=== PATIENT | female | born 1955 | race Caucasian/White ===

== ENCOUNTER 2024-07-31 07:52 | Outpatient (CLI) | payer MEDICARE, SELFPAY ==
--- NOTE | 2024-07-31 08:01 | XR_ITS ---
FINAL REPORT CLINICAL HISTORY: Acute cough, congestion FINDINGS: No acute pulmonary density is evident. There is no evidence of effusion or other pleural disease. The mediastinum has a normal appearance. The cardiac silhouette is unremarkable. IMPRESSION: Unremarkable chest exam. Reviewed, Interpreted and Dictated by Mimi Chin MD Transcribed by Bettye Gamble Authenticated and [facility]
--- OUTSIDE RECORDS SUMMARY | 2024-08-01 21:44 | XMS_ITS ---
Author Organization Unknown TREATMENT PLAN [facility] Start Date Provider Encounter for Check-up [id number] [facility]
== END 2024-07-31 23:59 | disposition home or self-care (01) ==
LOC: RAD 07:53
PROVIDERS: PCP Family Medicine; Visit Provider Family Medicine
DX: R05.9 Cough, unspecified (principal)
CPT/HCPCS: 71046

== ENCOUNTER 2024-08-30 16:18 | Outpatient (CLI) | payer MEDICARE, SELFPAY ==
[2024-08-30 18:38] LABS: Basophils % 0.3 % (0.1-2.0); Eosinophils # 0.1 Kmm3 (0.0-0.4); Eosinophils % 1.3 % (0.1-12.0); Hematocrit 40.8 % (37.0-47.0); Hemoglobin 13.2 g/dL (12.2-16.2); Immature Granulocytes # 0.03 10^3uL; Immature Granulocytes % 0.3 %; Lymphocytes # 2.6 K/mm3 (0.7-4.5); Lymphocytes % 24.1 % (10-50); Mean Corpuscular HGB Conc 32.4 g/dL (31.8-35.4); Mean Corpuscular Hemoglobin 29.7 pg (27.0-31.2); Mean Corpuscular Volume 91.9 fl (81-99); Mean Platelet Volume 10.2 fl (7.4-10.4); Monocytes # 0.5 K/mm3 (0.1-1.0); Monocytes % 4.8 % (1.7-9.3); Neutrophils # 7.6 K/mm3 (1.8-7.8); Neutrophils % 69.2 % (37.0-80.0); Nucleated Red Blood Cells # 0 10^3/uL; Nucleated Red Blood Cells % 0 %; Platelet Count 290 K/mm3 (142-424); Red Blood Count 4.44 M/mm3 (4.20-5.40); Red Cell Distribution Width-SD 40.8 fL; White Blood Count 10.9 K/mm3 (4.8-10.8)
[2024-08-30 18:54] LABS: Hemoglobin A1C 6.7 % (4.0-6.0)
[2024-08-30 19:09] LABS: Alanine Aminotransferase 21 U/L (12-78); Albumin Level 4.3 g/dl (3.5-5.0); Alkaline Phosphatase 78 U/L (38-126); Anion Gap 8.8 mEq/L (5-15); Aspartate Amino Transferase 24 U/L (14-36); Bilirubin,Total 0.4 mg/dl (0.2-1.3); Blood Urea Nitrogen 27 mg/dl (7-17); Calcium 9.1 mg/dl (8.4-10.2); Carbon Dioxide 29 mmol/L (22.0-30.0); Chloride 104 mmol/L (98-107); Chol/HDL Ratio 3.2 (1-3.5); Cholesterol 162 mg/dl (140-200); Estimated Glomerular Filt Rate 83 ml/min (>60); GFR (African American) 101 ML/MIN (>60); Globulin 2.2 g/dL (1.3-3.2); Glucose 165 mg/dl (74-100); HDL Cholesterol 51 mg/dl (40-60); Potassium 4.8 mmoL/L (3.5-5.1); Sodium 137 mmol/L (136-145); Total Protein,Serum 6.5 g/dl (6.3-8.2); Triglycerides 236 mg/dl (30-150); VLDL Cholesterol 47 mg/dL (0-40)
[2024-08-30 19:22] LABS: Direct LDL Cholesterol 82.57 mg/dL (100-129)
== END 2024-08-30 23:59 | disposition home or self-care (01) ==
LOC: LAB.DROPOF 09-02 10:34
PROVIDERS: PCP Family Medicine; Visit Provider Family Medicine
DX: E11.9 Type 2 diabetes mellitus without complications (principal); J44.9 Chronic obstructive pulmonary disease, unspecified; K57.92 Diverticulitis of intestine, part unspecified, without perforation or abscess without bleeding; Z72.0 Tobacco use
CPT/HCPCS: 80053; 80061; 83036; 85025

== ENCOUNTER 2024-09-02 14:40 | Outpatient (CLI) | payer MEDICARE, SELFPAY ==
--- NOTE | 2024-09-02 14:43 | XR_ITS ---
FINAL REPORT TECHNIQUE: Chest PA & Lateral CLINICAL HISTORY: Chronic bronchitis COMPARISON: 07/31/2024 FINDINGS: 2 views of the chest were performed. The heart size is normal. The mediastinum is within normal limits. There is no acute cardiopulmonary process. There are no pleural effusions. There is no pneumothorax. The bony thorax appears intact. There is interbody fusion hardware in the lower cervical spine. IMPRESSION: No acute cardiopulmonary process. Reviewed, Interpreted and Dictated by Zana Dumont MD Transcribed by Lucy Christianson Authenticated and [facility]
== END 2024-09-02 23:59 | disposition home or self-care (01) ==
LOC: RAD 14:41
PROVIDERS: PCP Family Medicine; Visit Provider Family Medicine
DX: J42 Unspecified chronic bronchitis (principal); Z98.1 Arthrodesis status
CPT/HCPCS: 71046

== ENCOUNTER 2024-09-06 14:05 | Outpatient (CLI) | payer MEDICARE, SELFPAY ==
--- NOTE | 2024-09-06 14:00 | CT_ITS ---
FINAL REPORT TECHNIQUE: Thin section axial images were obtained through the lungs using a low-dose technique per lung cancer screening protocol. Reconstruction images were obtained using the axial data. Exam was performed using dose reduction technique. This study was performed with techniques to keep radiation doses as low as reasonably achievable (ALARA). Individualized dose reduction techniques using automated exposure control or adjustment of mA and/or kV according to the patient's size were employed. CLINICAL HISTORY: lung cancer screening, current smoker 1ppd. 43 years COMPARISON: None FINDINGS: CTDLvol: 2.90 DLP: 100.03 Current smoker 43 pack year history Lungs: Changes of emphysema are present. There is a subpleural 4 mm nodule present in the right upper lobe, best seen on image #21 of series 4. There are at least 2 or more small (less than 4 mm in size) subpleural nodules present in the right upper lobe as well, best seen on image #15 of series 4. Lymph nodes: No thoracic lymphadenopathy. Mediastinum: Heart size is normal. Prominent coronary artery calcifications are noted. Pleura/pericardium: No pleural or pericardial effusion. Other: No acute abnormality in the upper abdomen. IMPRESSION: Small nodules in the right upper lobe, 4 mm or less in size as described. Lung RADS: 2S, the S designation for prominent coronary artery calcifications. Recommendation: 12-month follow-up LDCT. Reviewed, Interpreted and Dictated by Sveta Johnson MD Transcribed by Radha Waldron Authenticated and [facility]
== END 2024-09-06 23:59 | disposition home or self-care (01) ==
LOC: RAD 14:07
PROVIDERS: PCP Family Medicine; Visit Provider Family Medicine
DX: Z12.2 Encounter for screening for malignant neoplasm of respiratory organs (principal); R91.8 Other nonspecific abnormal finding of lung field; F17.210 Nicotine dependence, cigarettes, uncomplicated
CPT/HCPCS: 71271

== ENCOUNTER 2025-04-03 09:35 | Outpatient (CLI) | payer MEDICARE, SELFPAY ==
[2025-04-03 20:31] LABS: Hematocrit 42.0 % (37.0-47.0); Hemoglobin 13.1 g/dL (12.2-16.2); Immature Granulocytes % 0.3 %; Mean Corpuscular HGB Conc 31.2 g/dL (31.8-35.4); Mean Corpuscular Hemoglobin 29.6 pg (27.0-31.2); Mean Corpuscular Volume 94.8 fl (81-99); Nucleated Red Blood Cells % 0 %; Platelet Count 290 K/mm3 (142-424); Red Blood Count 4.43 M/mm3 (4.20-5.40); Red Cell Distribution Width-SD 41.7 fL; White Blood Count 13.3 K/mm3 (4.8-10.8)
[2025-04-03 21:08] LABS: Albumin Level 4.7 g/dl (3.5-5.0); Chloride 105 mmol/L (98-107); Potassium 5.9 mmoL/L (3.5-5.1); Sodium 144 mmol/L (136-145)
[2025-04-03 21:11] LABS: Alanine Aminotransferase 21 U/L (12-78); Albumin/Globulin Ratio 1.9 (1.1-1.8); Alkaline Phosphatase 67 U/L (38-126); Anion Gap 17.9 mEq/L (5-15); Aspartate Amino Transferase 31 U/L (14-36); Bilirubin,Total 0.3 mg/dl (0.2-1.3); Blood Urea Nitrogen 21 mg/dl (7-17); Calcium 9.4 mg/dl (8.4-10.2); Carbon Dioxide 27 mmol/L (22.0-30.0); Cholesterol 160 mg/dl (140-200); Creatinine,Serum 0.60 mg/dl (0.52-1.04); Estimated Glomerular Filt Rate 99 ml/min (>60); GFR (African American) 120 ML/MIN (>60); Globulin 2.5 g/dL (1.3-3.2); Glucose 84 mg/dl (74-100); Total Protein,Serum 7.2 g/dl (6.3-8.2); Triglycerides 279 mg/dl (30-150)
[2025-04-03 21:12] LABS: HDL Cholesterol 62 mg/dl (40-60)
[2025-04-03 21:29] LABS: Free T4 (Free Thyroxine) 0.67 ng/dl (0.78-2.19)
[2025-04-03 21:43] LABS: Thyroid Stimulating Hormone 0.74 uIU/mL (0.465-4.68)
== END 2025-04-03 23:59 | disposition home or self-care (01) ==
LOC: LAB.DROPOF 04-07 09:36
PROVIDERS: PCP Family Medicine; Visit Provider Family Medicine
DX: E11.9 Type 2 diabetes mellitus without complications (principal); I10 Essential (primary) hypertension; R53.83 Other fatigue
CPT/HCPCS: 80053; 80061; 84439; 84443; 85025

== ENCOUNTER 2025-04-04 16:19 | Emergency (ER) | payer MEDICARE, SELFPAY ==
[2025-04-04] VITALS (8 sets, daily range): BP systolic 133–142; BP diastolic 77–83; PULSE 79–86; RESP 18–20; TEMP 36.8–37.1; O2SAT 79–100; BMI 23.6
--- NOTE | 2025-04-04 16:35 | XR_ITS ---
PROCEDURE INFORMATION: Exam: XR Chest Exam date and time: 04/04/2025 4:46 PM Age: 69 years old Clinical indication: Shortness of breath; Additional info: Short of breath TECHNIQUE: Imaging protocol: Radiologic exam of the chest. Views: 1 view. Portable upright chest x-ray. COMPARISON: 1. CT LUNG SCREENING 09/06/2024 2:35 PM 2. CR XR CHEST 2V 09/02/2024 3:13 PM FINDINGS: Lungs: Lungs are hyperinflated. No airspace consolidation or nodules. Pleural spaces: No pleural effusion. No pneumothorax. Heart/Mediastinum: No abnormalities. No cardiomegaly. Vasculature: No pulmonary vascular congestion. Bones/joints: No fractures or bone lesions. Intervertebral disc prostheses of the lower lumbar spine. IMPRESSION: Hyperinflation. No acute chest disease or deleterious interval changes since 09/02/2024.
--- NOTE | 2025-04-04 16:42 | ED_ITS ---
<Statement entered by Sanam Holman DO - 04/06/25 23:22> I was consulted by the ANDREW, and we discussed the complexity of problems being addressed. I approve the treatment and management plan for this patient's care in the emergency department, thus performing a substantial portion of the medical decision making. Sanam Holman DO Discharge Plan Disposition Chief Complaint: Chest Pain Prescriptions Prescriptions: No Action lidocaine 5 % adhesive patch,medicated 1 patch topical DAILY Rx Instructions: leave on most painful area for up to 12 hrs ibuprofen 800 mg tablet 800 mg PO Q8H Qty: 90 2RF naloxone [Narcan] 4 mg/actuation spray,non-aerosol 1 spray intranasal Q2-3M PRN (Reason: opioid overdose) Qty: 2 2RF Rx Instructions: spray 1 dose into ONE nostril; alternate nostrils w each dose until help arrives cyclobenzaprine 10 mg tablet 10 mg PO HS Qty: 30 3RF oxycodone 5 mg tablet 5 mg PO Q8H PRN (Reason: pain) Qty: 90 0RF clonazepam [Klonopin] 1 mg tablet 1 mg PO TID PRN (Reason: anxiety) Qty: 90 1RF ondansetron 4 mg tablet,disintegrating 4 mg PO Q8H PRN (Reason: nausea and vomiting) Qty: 30 1RF Referrals Follow up/Referrals: Pradeep Arreguin MD [Primary Care Provider, Family Practice] - See instructions Print Language Print Language: Kinyarwanda Discharge ED Provider: Sanam Holman HPI General Chief Complaint: Chest Pain Stated Complaint: past chest pain, left arm pain, high potassium Time Seen by Provider: 04/04/25 16:23 History of Present Illness HPI narrative: 69-year-old female presents to the ED today for complaint of chest pain, left arm pain and high potassium. She was sent here by her PCP because her potassium was 5.9 this morning at 830. These labs were from yesterday. She had an appointment yesterday. She had had 3 3 days of chest pain and the chest pain got worse tonight and she decided to come in. She says her chest pain is sharp and she has been taking [place] 2 weeks. Of note her urine was neon blue. She has a history of COPD, anxiety, diabetes, and bipolar 2. Patient tells that she does not have a DNR with her but she does not want intubation or compressions. Related Data Home Medications ?Medication ?Instructions ?Recorded ?Confirmed lidocaine 5 % topical patch 1 patch topical DAILY 01/1604/03/25 Previous Rx's ?Medication ?Instructions ?Recorded ibuprofen 800 mg tablet 800 mg PO Q8H #90 tabs 08/30 cyclobenzaprine 10 mg tablet 10 mg PO HS #30 tabs 01/23 08/16 oxycodone 5 mg tablet 5 mg PO Q8H PRN pain #90 tab s 03/06/25 clonazepam 1 mg tablet (Klonopin) 1 mg PO TID PRN anxi ety #90 tabs 03/14/25 ondansetron 4 mg disintegrating 4 mg PO Q8H PRN nausea and 03/14/25 tablet vomiting #30 tabs naloxone 4 mg/actuation nasal 1 spray intranasal Q2-3M PRN 04/04/25 spray (Narcan) opioid overdose #2 ea Allergies Allergy/AdvReac Type Severity Reaction Status Date / Time No Known Allergies Allergy Verified 04/03/25 15:58 PFSH PFS Disclaimer: The information contained in this section may have been updated after the patient was seen, as this information can be updated by other users. Medical History Skin lesion of scalp Hypertension Thoracic back pain Pain in shoulder Chronic bronchitis Cigarette smoker Diverticulosis Anxiety Diabetes Chronic cervical pain Surgical History History of cervical spinal surgery H/O tubal ligation Family History Mother Cancer Other Alcoholism Anemia Diabetes FHx: mental illness Social History Smoking Status: Current every day smoker alcohol intake: never current occupational status: retired Travel in the last 8 weeks?: Inside the [place] Have you lived/traveled outside US in past 30 days?: No Contact w/someone who lives/traveled outside US past 30 days?: No Exposure to someone with infectious disease in past 14 days?: No Do you have a fever (greater than 100.4 F or 38 C)?: No Have you tested positive for COVID-19?: No Exposed to someone with COVID-19 in past 14 days?: No Do you have a sore throat?: No Do you have a cough?: No Do you have any weakness?: No Do you have any diarrhea?: No Are you experiencing any unusual bleeding?: No Do you have any muscle aches/pain?: No Do you have any abdominal pain?: No Are you experiencing loss of taste or smell?: No Other Medical History Have you received the Pneumonia Vaccine: No ROS Obtained: Yes Systems reviewed as appropriate & no additional complaints except as documented Constitutional Constitutional: Reports as per HPI Physical Exam General General appearance: alert and in no apparent distress Head Head exam: normocephalic Eye Eye exam: Present PERRL and EOMI ENT ENT exam: Present normal oropharynx and mucous membranes moist Neck Neck exam: Present full ROM and trachea midline Respiratory Respiratory exam: Present normal lung sounds bilaterally Cardiovascular Cardiovascular exam: Present normal rhythm, normal heart sounds, +S1 and +S2 Abdominal Exam Abdominal exam: Present soft and normal bowel sounds Extremities Exam Extremities exam: Present full ROM Neurological Exam Neurological exam: Present alert and oriented X3 Skin Skin exam: Present warm and dry HEART Score HEART Score HEART Score assessment performed?: Yes History (anamnesis): Slightly suspicious ECG: Non-specific disturbance Age: >65 years Risk factors: 3 or more risk factors Troponin: </= normal limit HEART Score: 5 Critical Care Critical Care Time Critical Care Time: No Medical Decision Making Graeme Inquiry Pt receiving controlled substance: No Graeme was queried for this patient: No Vital Signs Vital Signs: 04/04/25 16:21 04/04/25 16:21 04/04/25 16:29 Temperature 98.7 F 98.7 F Temperature Source Oral Oral Pulse Rate 82 Pulse Rate [Right] 82 Respiratory Rate 18 18 Blood Pressure 142/83 H 142/83 H Blood Pressure [Right Arm] 142/83 H Blood Pressure Mean [Right Arm] 102 Blood Pressure Source Automatic Cuff Blood Pressure Source [Right Arm] Automatic Cuff Blood Pressure Position Supine Blood Pressure Position [Right Arm] Supine 02 Sat by Pulse Oximetry 97 97 79 L Oxygen Delivery Method Room Air Room Air 04/04/25 16:45 04/04/25 17:00 04/04/25 17:27 Temperature Temperature Source Pulse Rate 79 81 83 Pulse Rate [Right] Respiratory Rate Blood Pressure 133/77 Blood Pressure [Right Arm] Blood Pressure Mean [Right Arm] Blood Pressure Source Blood Pressure Source [Right Arm] Blood Pressure Position Blood Pressure Position [Right Arm] 02 Sat by Pulse Oximetry 100 98 Oxygen Delivery Method 04/04/25 18:01 04/04/25 18:30 Temperature Temperature Source Pulse Rate 79 79 Pulse Rate [Right] Respiratory Rate Blood Pressure Blood Pressure [Right Arm] Blood Pressure Mean [Right Arm] Blood Pressure Source Blood Pressure Source [Right Arm] Blood Pressure Position Blood Pressure Position [Right Arm] 02 Sat by Pulse Oximetry 97 97 Oxygen Delivery Method Lab Data Labs: Lab Results 04/04/25 16:40: WBC 11.0 H, RBC 4.19 L, Hgb 12.5, Hct 38.3, MCV 91.4, MCH 29.8, MCHC 32.6, RDW 12.0, Plt Count 281, MPV 10.4, Neut % (Auto) 64.5, Lymph % (Auto) 26.0, Major % (Auto) 5.8, Eos % (Auto) 2.9, Baso % (Auto) 0.6, Neut # (Auto) 7.1, Lymph # (Auto) 2.9, Major # (Auto) 0.6, Eos # (Auto) 0.3, Baso # (Auto) 0.1, Sodium 143, Potassium 4.2 D, Chloride 104, Carbon Dioxide 30, Anion Gap 13.2, B UN 27 H D, Creatinine 0.80 D, Estimated Creat Clear 51, Estimated GFR 71, Est GFR ( Amer) 86 D, Glucose 87, Calcium 9.2, Magnesium 2.0, Total Bilirubin 0.4, AST 27, ALT 21, Alkaline Phosphatase 62, Troponin I < 0.01, Total Protein 7.1, Albumin 4.5, Globulin 2.6, Albumin/Globulin Ratio 1.7, Lipase 55, HCV Ab MADI w/Rflx PCR Qn Negative, HIV Ag/Ab Combo Qual Negative 04/04/25 16:40 04/04/25 16:40 Response Orders (Tests/Meds): ED MEDICATIONS Generic Name Dose Route Start Last Admin Trade Name Freq PRN Reason Stop Dose Admin Sodium Chloride 8 ml 04/04/25 16:34 Sodium Chloride 0.9% 10ml Vial IV 05/04/25 16:33 NEEDED PRN dilute pepcid Discontinued Medications Generic Name Dose Route Start Last Admin Trade Name Freq PRN Reason Stop Dose Admin Aspirin 325 mg 04/04/25 16:34 04/04/25 18:44 Aspirin 325mg Tablet PO 04/04/25 16:35 Not Given ONCE ONE Famotidine 20 mg 04/04/25 16:34 04/04/25 18:44 Famotidine 20mg/2ml Vial IV 04/04/25 16:35 Not Given ONCE ONE Sodium Chloride 1,000 mls @ 999 mls/hr 04/04/25 16:34 04/04/25 18:44 Sod Chlor 0.9% 1000ml Bag IV 04/04/25 17:34 Not Given .Q1H1M ONE Magnesium Sulfate 2 gm in 50 mls @ 50 mls/hr 04/04/25 16:34 04/04/25 18:44 Magnesium Sulfate 2gm/50ml Premix IV 04/04/25 17:33 Not Given ONCE ONE Morphine Sulfate 4 mg 04/04/25 16:34 04/04/25 18:43 Morphine 4mg/Ml Syringe IV 04/04/25 16:35 Not Given ONCE ONE Ondansetron HCl 4 mg 04/04/25 16:34 04/04/25 18:45 Ondansetron 4mg/2ml Vial IV 04/04/25 16:35 Not Given ONCE ONE ORDERS Category Date Time Status Chest XR -- portable [XR chest portable] Stat Exams 04/04/25 16:35 Completed CBC [Complete Blood Count Auto Diff] Stat Lab 04/04/25 16:40 Completed Comprehensive Metabolic Panel Stat Lab 04/04/25 16:40 Completed HIV Combo Stat Lab 04/04/25 16:40 Completed Hepatitis C Ab Qual. W/ RFX Stat Lab 04/04/25 16:40 Completed Lipase Stat Lab 04/04/25 16:40 Completed Magnesium Stat Lab 04/04/25 16:40 Completed Rapid PCR Covid and Flu A/B Stat Lab 04/04/25 16:35 Ordered Trop I [Troponin I] Stat Lab 04/04/25 16:40 Completed Troponin I Q3H Lab 04/04/25 19:45 Ordered Troponin I Q3H Lab 04/04/25 22:45 Ordered Urinalysis and Microscopic Stat Lab 04/04/25 16:23 Received MDM Narrative Medical Decision Narrative: patient is a 69-year-old female presenting to the emergency department for evaluation of chest pain, left arm pain and elevated potassium. Patient is hemodynamically stable and nontoxic-appearing upon arrival, afebrile. Differential diagnosis includes ACS, WI, hyperkalemia, among other. Workup will be conducted with hematologic labs, specific imaging. Initial inventions include crystalloid bolus, analgesics. Initial workup reviewed by me hematologic labs are remarkable for Slightly elevated white count at 11 her potassium was 4.2 on repeat, BUN was 27 creatinine was 0.80 other electrolytes were okay troponin was less than 0.01. Chest x-ray showed hyperinflation and no chest disease. Patient has refused all medications because she does not understand why we were giving her medications she said that she was here for an elevated potassium. Then she wanted to have the fluids that she declined. She is upset that she is having to wait for her second troponin. Patient wants to leave because her had needs tube feeds and to get home for his own illnesses that are chronic. Patient wants to know if we can draw her troponin and call her if it is abnormal and she will come back. I feel like this is reasonable as she is concerned about her and her first troponin was negative. We will discharge patient but still have her sign AMA. This way she will understand that she is still leaving AGAINST MEDICAL ADVICE.
[2025-04-04 16:55] LABS: Hematocrit 38.3 % (37.0-47.0); Hemoglobin 12.5 g/dL (12.2-16.2); Immature Granulocytes % 0.2 %; Mean Corpuscular HGB Conc 32.6 g/dL (31.8-35.4); Mean Corpuscular Hemoglobin 29.8 pg (27.0-31.2); Mean Corpuscular Volume 91.4 fl (81-99); Nucleated Red Blood Cells % 0 %; Platelet Count 281 K/mm3 (142-424); Red Blood Count 4.19 M/mm3 (4.20-5.40); Red Cell Distribution Width-SD 40.0 fL; White Blood Count 11.0 K/mm3 (4.8-10.8)
[2025-04-04 16:57] LABS: Albumin Level 4.5 g/dl (3.5-5.0); Chloride 104 mmol/L (98-107); Sodium 143 mmol/L (136-145)
[2025-04-04 16:58] LABS: Potassium 4.2 mmoL/L (3.5-5.1)
--- NOTE | 2025-04-04 16:58 | ECG_ITS ---
APPROVED REPORT Exam: Resting ECG HR:75 bpm ECG Measurements Heart Rate 75 AXES OH 141 P 75 QRSd 86 QRS 75 QT 377 T 70 QTc 405 Conclusion SINUS RHYTHM NORMAL ECG UNCONFIRMED REPORT Electronically signed by : DUNCAN GUIDRY, 04/07/2025 00:20:47
[2025-04-04 17:00] LABS: Alanine Aminotransferase 21 U/L (12-78); Albumin/Globulin Ratio 1.7 (1.1-1.8); Alkaline Phosphatase 62 U/L (38-126); Anion Gap 13.2 mEq/L (5-15); Aspartate Amino Transferase 27 U/L (14-36); Bilirubin,Total 0.4 mg/dl (0.2-1.3); Blood Urea Nitrogen 27 mg/dl (7-17); Carbon Dioxide 30 mmol/L (22.0-30.0); Creatinine Clearance Estimated 51 mL/min (50-200); Creatinine,Serum 0.80 mg/dl (0.52-1.04); Estimated Glomerular Filt Rate 71 ml/min (>60); GFR (African American) 86 ML/MIN (>60); Globulin 2.6 g/dL (1.3-3.2); Total Protein,Serum 7.1 g/dl (6.3-8.2)
[2025-04-04 17:01] LABS: Calcium 9.2 mg/dl (8.4-10.2); Glucose 87 mg/dl (74-100); Lipase 55 U/L (23-300); Magnesium 2.0 mg/dl (1.6-2.3)
[2025-04-04 17:19] LABS: Troponin I < 0.01 ng/ml (0.00-0.034)
[2025-04-04 17:50] LABS: Hepatitis C Ab Qual. W/ RFX NEGATIVE (Negative)
[2025-04-04 19:30] LABS: Microscopic, Urine URINE MICROSCOPIC (MICROSCOPIC)
[2025-04-04 19:33] LABS: Bilirubin,Urine Negative (Negative); Color,Urine YELLOW (Yellow); Glucose,Urine (UA) Negative (Negative); Ketones,Urine Negative (Negative); Leukocyte Esterase,Urine Negative (Negative); PH,Urine 6.5 (5.0-8.5); Protein,Urine Negative (Negative); Specific Gravity, Urine <= 1.005 (1.005-1.030); Urobilinogen,Urine 0.2 EU/dl (0.2)
--- NOTE | 2025-04-04 19:39 | PC.NURSE ---
pt requesting to leave AMA even after this RN explained the risks including . pt reports she understands the risks and still desires to leave. this RN removed her IV and witnessed the AMA signature.
[2025-04-04 19:59] LABS: Troponin I < 0.01 ng/ml (0.00-0.034)
== END 2025-04-04 19:39 | disposition left against medical advice (07) ==
PROVIDERS: Nurse Practitioner; Emergency Provider Student in an Organized Health Care Education/Training Program; PCP Family Medicine
DX: R07.9 Chest pain, unspecified (principal); F17.210 Nicotine dependence, cigarettes, uncomplicated; I10 Essential (primary) hypertension; E11.9 Type 2 diabetes mellitus without complications
CPT/HCPCS: 71045; 80053; 81001; 83690; 83735; 84484; 85025; 86803; 87389; 93005; 99285; J1308; J2270; J2405; J3475; J7030

== ENCOUNTER 2025-04-09 13:22 | Outpatient (CLI) | payer MEDICARE, SELFPAY ==
--- OUTSIDE RECORDS SUMMARY | 2025-04-09 14:19 | XMS_ITS | Patient Health Record ---
Author Organization [facility] Address [address] [place] [address] Care Team Providers Care Hand Stone Polisher Name Role Phone MS. MALIK LEIGH Primary Care Provider Allergies No Known Allergies Reason For Referral No Information Medications Medication SIG (Take, Route, Frequency, Duration) Notes Start Date End Date Status clonazePAM 0.5 MG Tablet 1 tablet at bed time Orally prn Active Ondansetron 8 MG Tablet Disintegrating 1 tablet on the tongue and allow to dissolve as needed Orally Once a day prn; Duration: 30 day(s) Active Aricept 10 MG Tablet 1 tablet at bedtime Orally Once a day Active PROzac 40 MG Capsule 1 capsule Orally On ce a day Active Atenolol 50 MG Tablet TAKE ONE TABLET BY MOUTH ONE TIME DAILY; Duration: 90 Active LaMICtal 150 MG Tablet 1 tablet Orally t hree times per day Active Vyvanse 40 MG Capsule 1 capsule in the m orning Orally Once a day Active Aricept 5 MG Tablet 1 tablet at bedtime Orally Once a day Active buPROPion HCl ER (XL) 300 MG Tablet Extended Release 24 Hour 1 tablet in the morning Orally Once a day Active busPIRone HCl 5 MG Tablet 1 tablet Orall y Twice a day Active traZODone HCl 150 MG Tablet 1/2 tablet a t bedtime Orally Once a day Active Immunizations Vaccine Route Administration Date Status Comme nts PPSV23 Unknown 08/07/2012 Administered TD/TETANUS Unknown 08/07/2012 Administered TDAP Unknown 08/18/2018 Administered Social History Social History Social History Social Info Question Answer Notes Alcohol Screening: Did you have a drink containing alcohol in the past year? 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) Active confirmed continue on Trazodone Problem Mixed bipolar affective disorder, moderate (633649816) Bipolar disorder, current episode mixed, moderate (F31.62) Active confirmed Problem Disorder of arteries and arterioles, unspecified (I77.9) Active confirmed Plaques in the Coronary Problem Atherosclerosis of aorta (28934457) Atherosclerosis of aorta (I70.0) Active confirmed CT SCAN [id number] PAGE 05/05 Problem Essential hypertension (17256177) Essential hypertension (I10) Active confirmed Problem Vitamin D deficiency (84199388) Vitamin D deficiency (E55.9) Active confirmed Problem Smoker (72045333) Smoker (F17.200) Active confi rmed Problem Atherosclerotic heart disease of [place] coronary artery without angina pectoris (518524090158560) Coronary artery disease involving [place] coronary artery of [place] heart without angina pectoris (I25.10) Active confirmed Problem COPD - Chronic obstructive pulmonary disease (53853183) Chronic obstructive pulmonary disease, unspecified COPD type (J44.9) Active confirmed Pulmonary 04/29/2019 Problem Cardiac arrhythmia (411742519) Cardiac arrhythmia, unspecified cardiac arrhythmia type (I49.9) Active confirmed Problem Hyperglycemia due to type 2 diabetes mellitus (344956429215405) Type 2 diabetes mellitus with hyperglycemia, without long-term current use of insulin (E11.65) Active confirmed Problem Recurrent major depression (36289657) Episode of recurrent major depressive disorder, unspecified depression episode severity (F33.9) Active confirmed Problem Type 2 diabetes mellitus with other specified complication, without long-term current use of insulin (E11.69) Active confirmed Problem Immunodeficiency disorder (disorder) (264420903) 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) Active confirmed Neutrophilis Absolute 8.0 on 12/18/2021 Problem Mixed hyperlipidemia (674900674) Mixed hyperlipidemia (E78.2) Active confirmed Plan Of Treatment Pending Test Test Name Order Date EKG 09/10/2021 Drug Profile, Blood (7 Drugs) 04/08/2022 Pain Management Profile, urine (13 drugs ) (246514) [facility] 04/08/2022 Insurance Providers Payer Name Payer Address Payer Phone Subscriber Number Group Number Insured Name Patient Relationship to Insured Coverage Start Date Coverage End Date Medicare - [facility] [address] [address] [place] [address] [id number] Emily Andre Self - patient is the insured 1 Medications Administered Medication Instructions Date of Administration Dosage Notes Cyanocobalamin 04/08/2022 1 mL Medical (General) History Medical History History ICD Code Diverticulosis Bipolar disorder Surgical History Surgery Date(Month/Year) Cervical spine Hospitalization History Reason Date(Month/Year)
--- OUTSIDE RECORDS SUMMARY | 2025-04-09 14:19 | XMS_ITS | Patient Health Record ---
Author Organization [facility] Billing Info Address [address] [place] [address] [place] [address] Phone [phone] Care Team Providers Care Machine Stapler Name Role Phone Doris Hammer Primary Care Provider Unavailable LEE ANN ASHTON MD Unavailable [phone] Dr Shanika Garcia DO Unavailable Unavailabl e Reason For Referral No Information Medications Medication SIG (Take, Route, Frequency, Duration) Notes Start Date End Date Diagnosis (ICD Code) Status BuPROPion HBr 300mg Every morning Active Vyvanse 60 MG Capsule Orally Active Lamictal 150mg in the morning, 300mg at night Active Prozac 40 MG Capsule Orally Active Hydrocodone-Ibu profen Active Dilaudid As needed Active Trazodone HCl Active Ibuprofen As needed Active Gabapentin 100 MG Capsule Orally Not-Taking Atenolol 25mg at night Active Aleve As needed Active Baclofen As needed Active Social History Sex Observation Social History Observation Description Sex Observation Female Problems Problem Type SNOMED Code ICD Code Dates Problem Status W/U Status Risk Notes Problem Cervical radiculopathy (27706204) Cervical radiculopathy (M54.12) Added On:02/23 Active confirmed S/p total disc arthroplasty Problem Cervical myelopathy with cervical radiculopathy (M47.12) Added On:01/23 Active confirmed S/p total disc arthroplasty Problem Arthropathy of right shoulder (70394274457148 103) 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) Added On:01/23 Active confirmed Plan Of Treatment Pending Test Test Name Order Date MRI-CERVICAL SPINE; W/O CONTRAST MATL (2140) 06/13/2018 MRI-CERVICAL SPINE; W/O CONTRAST MATL (2140) 01/14/2019 MRI SHOULDER RT W/O CONTRAST([facility]) 02/12/2020 Insurance Providers Payer Name Payer Address Payer Phone Subscriber Number Group Number Insured Name Patient Relationship to Insured Coverage Start Date Coverage End Date [employer] OAP/[id number] [address] IVAN TRUONG [id number] Emily Andre Self - patient is the insured 9 9 Medical (General) History Medical History History ICD Code Bipolar 1 disorder F31.9 Tachycardia R00.0 Diverticulitis Surgical History Surgery Date(Month/Year) tubal ligation wisdom teeth extraction C5-6 C6-7 Total Disc Arthoplasty. - Dr. Ashton 05/05/2019 Hospitalization History Reason Date(Month/Year) [facility] 05/05/2019
--- NOTE | 2025-04-09 14:46 | XR_ITS ---
FINAL REPORT CLINICAL HISTORY: pain, decreased rom FINDINGS: AP, lateral and odontoid views of the cervical spine were obtained. There is no prior exam for comparison. There is no acute fracture. Anterolisthesis of C4 on C5 is likely degenerative. There are postoperative changes at C5-6 and C6-7. Multilevel degenerative disc disease is noted. The precervical soft tissues are normal. IMPRESSION: No acute osseous abnormality of the cervical spine. Degenerative/chronic changes. Reviewed, Interpreted and Dictated by Sveta Johnson MD Transcribed by Shannan Torres Authenticated and . [facility]
--- NOTE | 2025-04-09 14:46 | XR_ITS ---
FINAL REPORT CLINICAL HISTORY: pain, decreased rom FINDINGS: For views of the right shoulder were obtained. There is no prior exam for comparison. There is no fracture or dislocation. Degenerative joint disease of both the glenohumeral and acromioclavicular joints. Soft tissues are unremarkable. IMPRESSION: No acute osseous abnormality of the right shoulder. Degenerative joint disease. Reviewed, Interpreted and Dictated by Sveta Johnson MD Transcribed by Shannan Torres Authenticated and [facility]
--- NOTE | 2025-04-09 14:46 | XR_ITS ---
FINAL REPORT CLINICAL HISTORY: pain, decreased rom FINDINGS: 3 views of the left shoulder were obtained. There is no prior exam for comparison. There is no fracture or dislocation. The joint space is preserved. Soft tissues are unremarkable. IMPRESSION: No acute osseous abnormality of the left shoulder. Reviewed, Interpreted and Dictated by Sveta Johnson MD Transcribed by Shannan Torres Authenticated and [facility]
--- NOTE | 2025-04-09 14:46 | XR_ITS ---
FINAL REPORT CLINICAL HISTORY: pain FINDINGS: AP and lateral views of the thoracic spine were obtained. There is no prior exam for comparison. There is no acute fracture or acute malalignment. Vertebral body height is preserved. There is levoscoliosis and multilevel degenerative disc disease. No acute paraspinal abnormality. IMPRESSION: No acute osseous abnormality of the thoracic spine. Degenerative/chronic changes. Reviewed, Interpreted and Dictated by Sveta Johnson MD Transcribed by Shannan Torres Authenticated and [facility]
== END 2025-04-09 23:59 | disposition home or self-care (01) ==
PROVIDERS: PCP Family Medicine; Visit Provider Family Medicine
DX: M47.812 Spondylosis without myelopathy or radiculopathy, cervical region (principal); M19.011 Primary osteoarthritis, right shoulder; M25.512 Pain in left shoulder; G89.29 Other chronic pain
CPT/HCPCS: 72040; 72070; 73030

== ENCOUNTER 2025-04-15 11:06 | Day surgery (SDC) | payer MEDICARE, SELFPAY ==
[2025-04-15 11:13] VITALS: BMI 23.9
[2025-04-15 11:34] VITALS: BP 123/83; PULSE 80; RESP 18; TEMP 36.6; O2SAT 99
[2025-04-15] MEDS: LIDOCAINE 1% 20ML MDV 20 ML (12:00)
--- NOTE | 2025-04-15 12:26 | EXP.OP.NOTE ---
Date of procedure: 04/15/25 Pre-op Diagnosis:: 1 cm left anterior scalp skin lesion (neoplasm of uncertain behavior) Post-op Diagnosis:: Same Procedure performed:: Excision of 1 cm left anterior scalp lesion (neoplasm of uncertain behavior) Surgeon:: Willian Mercado MD Anesthesia: local Estimated blood loss (mL): 5 Operative findings:: Lesion excised in toto Operative note:: After informed consent was obtained the patient was taken to the procedure room. The left anterior scalp region was prepped and draped in a sterile fashion. After infiltration with local anesthetic an elliptical incision was made around the lesion. The lesion was sharply excised in toto and passed off for pathologic evaluation. Dissection was taken to the deep subcutaneous tissue. Electrocautery was utilized to achieve hemostasis. Skin was then reapproximated with interrupted 4-0 nylon in a mattress fashion. Dressings were applied and the patient was discharged home in stable condition. Condition: stable Disposition: no change Specimens:: Left anterior scalp skin lesion Complications:: No immediate
[2025-04-15 12:28] VITALS: BP 134/68; PULSE 68; RESP 18; TEMP 36.4; O2SAT 100
== END 2025-04-15 12:28 | disposition home or self-care (01) ==
PROVIDERS: PCP Family Medicine; Visit Provider Surgery
PROC: (CPT 11421; principal; 2025-04-15 12:00)
DX: D23.4 Other benign neoplasm of skin of scalp and neck (principal); R20.8 Other disturbances of skin sensation; Z63.4 Disappearance and death of family member
CPT/HCPCS: 11421; 88305; J2003